=== PATIENT | female | born 1965 | race Caucasian/White ===

== ENCOUNTER 2021-05-20 17:14 | Observation (INO) ==
[2021-05-20] MEDS ORDERED: SODIUM CHLORIDE 0.9% 1000ML 1,000 ML IV STA (17:36)
[2021-05-20] MEDS ORDERED: ONDANSETRON INJ 2 MG/ML 2 ML VIAL IV STA ×2 (17:36→21:57)
[2021-05-20] MEDS ORDERED: GI COCKTAIL ED USE PO ONE (17:36)
[2021-05-20] MEDS ORDERED: FAMOTIDINE 20MG IV PUSH 20 MG/5 ML SYR IV STA (17:36)
--- NOTE | 2021-05-20 17:44 | Emergency Department Note ---
History of Present Illness General Chief complaint: Kidney Stone Stated complaint: KIDNEY STONE, NAUSEA, Time Seen by Provider: 05/20/21 17:19 History of Present Illness Maximum Pain Intensity: 9 55-year-old female who presents to emergency department for family with complaint of epigastric pain radiating into the back patient also has had nausea without vomiting. The patient reports that her pain feels similar to a kidney stone that she has had in the past. She last had extracorporeal shockwave lithotripsy performed and December for 2 left-sided kidney stones. This was performed by Dr. Bergeron in [place] where she is from. The patient did not have any discomfort after having her procedure. On further questioning, the patient has had minimal reflux in the past. She does admit to drinking 5 rum and Cokes last evening. She denies any significant caffeine or NSAID use. She denies any shortness of breath or nata chest pain, pressure, diaphoresis, dizziness or near syncope. Patient reports that her father had a myocardial infarction in his 50s. Her paternal grandmother also had a myocardial infarction at an older age. The patient reports borderline hyperlipidemia, otherwise denies any other significant medical history or medication use. The patient currently rates her discomfort a 9 out of 10. Home Medications Medication Instructions Recorded Confirmed Type alprazolam 0.25 mg tablet (Xanax) 0.125 - 0.25 mg PO DIRECTED PRN 05/20/21 05/20/21 History cholecalciferol (vitamin D3) 25 0 mcg PO WK 05/20/21 05/20/21 History mcg (1,000 unit) capsule (Vitamin D3) Allergies Allergy/AdvReac Type Severity Reaction Status Date / Time No Known Allergies Allergy Verified 05/20/21 17:47 Past Med/Surg History Medical History Borderline hyperlipidemia Kidney stones Surgical History History of lithotripsy Social History Smoking Status: Never smoker Preferred Language: Cymro marital status: Current Living Situation: Spouse and Family current occupational status: employed Feels Safe at Home: Yes Review of Systems 10 system review was performed and was negative except for pertinent positives and negatives as indicated in history of present illness Physical Exam Vital Signs Vital Signs - 24 hr 05/20/21 17:14 05/20/21 17:53 05/20/21 18:00 Temperature 36.0 C L Temperature Source Temporal Artery Scan Pulse Rate 60 55 L 56 L Pulse Rate [Bilateral Apical] Pulse Rate from SpO2 Sensor 54 L 56 L Pulse Rhythm Regular Pulse Strength Normal Respiratory Rate 16 17 17 Respiratory Effort / Characteristics Non-Labored Respiratory Depth Normal Blood Pressure 145/75 H 154/66 H Blood Pressure [Left Arm] Blood Pressure Mean 98 95 Blood Pressure Mean [Left Arm] Pulse Oximetry 99 97 98 Oxygen Delivery Method Room Air Sepsis Recent Fever Within 48 Hours No Sepsis New/Unexplained Change in Mental Status N/A Sepsis Action Taken by Nursing No Action Required 05/20/21 19:20 05/20/21 19:23 05/20/21 19:52 Temperature Temperature Source Pulse Rate Pulse Rate [Bilateral Apical] 63 76 Pulse Rate from SpO2 Sensor Pulse Rhythm Pulse Strength Respiratory Rate 20 20 Respiratory Effort / Characteristics Respiratory Depth Blood Pressure Blood Pressure [Left Arm] 151/82 H 128/73 Blood Pressure Mean Blood Pressure Mean [Left Arm] 105 91 Pulse Oximetry 98 98 98 Oxygen Delivery Method Room Air Room Air Sepsis Recent Fever Within 48 Hours Sepsis New/Unexplained Change in Mental Status Sepsis Action Taken by Nursing 05/20/21 20:32 05/20/21 21:11 05/20/21 21:59 Temperature Temperature Source Pulse Rate Pulse Rate [Bilateral Apical] 59 L 48 L 59 L Pulse Rate from SpO2 Sensor Pulse Rhythm Pulse Strength Respiratory Rate 20 20 20 Respiratory Effort / Characteristics Respiratory Depth Blood Pressure Blood Pressure [Left Arm] 114/74 122/67 114/67 Blood Pressure Mean Blood Pressure Mean [Left Arm] 87 85 82 Pulse Oximetry 96 98 96 Oxygen Delivery Method Room Air Room Air Room Air Sepsis Recent Fever Within 48 Hours Sepsis New/Unexplained Change in Mental Status Sepsis Action Taken by Nursing 05/20/21 22:32 Temperature Temperature Source Pulse Rate Pulse Rate [Bilateral Apical] 57 L Pulse Rate from SpO2 Sensor Pulse Rhythm Pulse Strength Respiratory Rate 20 Respiratory Effort / Characteristics Respiratory Depth Blood Pressure Blood Pressure [Left Arm] 127/64 Blood Pressure Mean Blood Pressure Mean [Left Arm] 85 Pulse Oximetry 98 Oxygen Delivery Method Room Air Sepsis Recent Fever Within 48 Hours Sepsis New/Unexplained Change in Mental Status Sepsis Action Taken by Nursing CONSTITUTIONAL: Healthy and well nourished. Alert and oriented X 3. Patient is initially standing at bedside, and appears in moderate discomfort with an emesis bag. HEENT: No scleral icterus or conjunctival injection/pallor. NECK: Full active range of motion without discomfort. No JVD or carotid bruits. RESPIRATORY: Clear to auscultation bilaterally with no wheezing, crackles, rhonchi or stridor. The breathing does not cause any discomfort. CARDIOVASCULAR: Regular rate and rhythm with no murmurs, rubs or gallops. GASTROINTESTINAL: Bowel sounds present in all quadrants. Patient has mild epigastric tenderness to palpation. Negative McBurney's point tenderness. Negative Lott sign. Negative CVA tenderness. No focal left lower quadrant tenderness to palpation. No rigidity, guarding or rebound. MUSCULOSKELETAL: Full range of motion of all joints without discomfort. INTEGUMENTARY: No rash or other significant dermatologic conditions noted. HEMATOLOGIC: No ecchymosis or petechiae. PSYCHIATRIC: Positive affect. NEUROLOGIC: No focal neurologic deficits noted. Course Course Patient history and physical exam were performed. Nurses notes were reviewed. Vital signs were reviewed, showing a mildly elevated blood pressure 145/75. The patient is not tachypneic, tachycardic sick. The patient does appear in moderate discomfort with nausea. IV access was established, and labs were drawn. The patient was hydrated with a liter normal saline, and administered IV Pepcid and Zofran. The patient refused any analgesics. An order was also plac ed for a GI cocktail, but the patient was encouraged to wait until her nausea subsides before drinking it. ECG was performed, showing a sinus bradycardia without any other conduction abnormalities, ischemia or infarct. The patient was placed on last picker while in the emergency department. Review of labs shows a normal CBC, coag studies, CMP and lipase. Patient does have trace hematuria that the patient reports is chronic. She otherwise does not appear to have UTI. COVID-[address] angio of the chest, as well as CT with IV contrast of the abdomen and pelvis was suggestive of acute cholecystitis. After the patient returned from CT, she was complaining of notable pain, and was administered IV morphine with excellent pain control. Findings were discussed with the patient. I did recommend surgical intervention. Upon further discussions with the patient, she initially wanted to drive back home to [place] for further surgical management. I did recommend having our surgical team evaluate the patient and provide further guidance. I also recommended performing an ultrasound to look a little bit closer at the gallbladder, and the patient was in agreement. To placing the order for the gallbladder, I discussed the case further with Davian Downey PA-C, working with Dr. Amaro, general surgeon. The initial plan was to admit the patient for laparoscopic cholecystectomy procedure. It was recommended that the ultrasound not to be performed. Given her normal lab work, Dr. Amaro recommended performing a gallbladder ultrasound for further characterization. Ultrasound showed cholelithiasis without any convincing cholecystitis or, bile duct dil atation. The patient did eventually agreed to admission and surgical intervention. Please see general surgery's dictations for further surgical treatment and final disposition. The patient felt comfortable at the time of my transfer of care to the surgical service. Administered Medications Lactated Ringer's (Lr) 1,000 mls @ 100 mls/hr IV .Q10H MARY Stop: 06/19/21 22:14 Last Admin: 05/20/21 22:31 Dose: 100 mls/hr Documented by: [id number] Discontinued Medications Al Hydrox/Mg Hydrox/Simethicone (Gi Cocktail Ed Use) 1 dose PO ONE ONE Stop: 05/20/21 17:37 Last Admin: 05/20/21 17:48 Dose: 1 dose Documented by: [id number] Sodium Chloride (Nss 1000ml) 1,000 mls @ 999 mls/hr IV .Q1H1M STA Stop: 05/20/21 18:36 Last Infusion: 05/20/21 19:00 Dose: 0 mls/hr Documented by: [id number] Admin: 05/20/21 17:48 Dose: 999 mls/hr Documented by: [id number] Famotidine (Pepcid 20mg Iv Push) 20 mg in 5 mls @ 2.5 mls/min IV NOW STA Stop: 05/20/21 17:37 Last Admin: 05/20/21 17:49 Dose: 2.5 mls/min Documented by: [id number] Piperacillin Sod/Tazobactam (Sod 3.375 gm/ Dextrose) 100 ml in 115 mls @ 230 mls/hr IV NOW STA Stop: 05/20/21 22:39 Last Infusion: 05/20/21 22:57 Dose: 0 mls/hr Documented by: [id number] Admin: 05/20/21 22:37 Dose: 230 mls/hr Documented by: [id number] Ioversol (Optiray 320 125ml) 120 ml IV ONCE ONE Stop: 05/20/21 19:17 Last Admin: 05/20/21 19:17 Dose: 120 ml Documented by: [id number] Morphine Sulfate (Morphine Sulfate 10 Mg/Ml Carp/Vial) 6 mg IV NOW STA Stop: 05/20/21 19:25 Last Admin: 05/20/21 19:52 Dose: Not Given Documented by: [id number] Morphine Sulfate (Morphine Sulfate 2 Mg/Ml Carp) Confirm Administered Dose 2 mg .ROUTE .STK-MED ONE Stop: 05/20/21 19:47 Last Admin: 05/20/21 19:50 Dose: 2 mg Documented by: [id number] Morphine Sulfate (Morphine Sulfate 4 Mg/Ml 1 Ml Carp\Vial) Confirm Administered Dose 4 mg .ROUTE .STK-MED ONE Stop: 05/20/21 19:48 Last Admin: 05/20/21 19:49 Dose: 4 mg Documented by: [id number] Ondansetron HCl (Ondansetron Inj 2 Mg/Ml 2 Ml Vial) 4 mg IV NOW STA Stop: 05/20/21 17:37 Last Admin: 05/20/21 17:49 Dose: 4 mg Documented by: [id number] Ondansetron HCl (Ondansetron Inj 2 Mg/Ml 2 Ml Vial) 4 mg IV NOW STA Stop: 05/20/21 21:58 Last Admin: 05/20/21 22:12 Dose: 4 mg Documented by: [id number] Medical Decision Making Medical Records Attestation: I reviewed the patient's medical records. Home Medications Current Medication List: was personally reviewed by me Laboratory Data Attestation: I reviewed the patient's lab results. Result diagrams: 05/20/21 17:40 05/20/21 17:40 Lab Results 05/20/21 05/20/21 05/20/21 Range/Units 17:40 17:40 17:40 WBC 7.82 (4.8-10.8) K/uL RBC 4.36 (4.2-5.4) M/uL Hgb 13.7 (12.0-16.0) g/dL Hct 39.4 (37-47) % MCV 90.4 (80-100) fL MCH 31.4 (25-34) pg MCHC 34.8 (32-36) g/dL RDW Std Deviation 46.8 H (36.4-46.3) fL RDW Coeff of Rain 14.1 (11.5-14.5) % Plt Count 332 (130-400) K/uL MPV 9.3 (7.4-10.4) fL Immature Gran % (Auto) 0.3 % Neut % (Auto) 49.1 % Lymph % (Auto) 33.8 % Millard % (Auto) 11.4 % Eos % (Auto) 5.0 % Baso % (Auto) 0.4 % Neut # (Auto) 3.85 (1.4-6.5) K/uL Lymph # (Auto) 2.64 (1.2-3.4) K/uL Millard # (Auto) 0.89 H (0.11-0.59) K/uL Eos # (Auto) 0.39 (0-0.5) K/uL Baso # (Auto) 0.03 (0-0.2) K/uL Immature Gran # (Auto) 0.02 (0.00-0.02) K/uL PT 10.4 (9.0-12.0) Seconds INR 1.0 (0.9-1.1) APTT 27.0 (21.0-31.0) Seconds PTT Ratio 1.0 Sodium 140 (136-145) mmol/L Potassium 3.6 (3.5-5.1) mmol/L Chloride 107 (98-107) mmol/L Carbon Dioxide 25 (21-32) mmol/L Anion Gap 8 (3-11) BUN 19 (6-23) mg/dl Creatinine 0.71 (0.6-1.2) mg/dl Est Cr Clr Drug Dosing 95.7 ml/min Est GFR ( Amer) 112.7 ml/min Est GFR (Non-Af Amer) 97.2 ml/min BUN/Creatinine Ratio 26.8 H (10-20) Glucose 118 H (70-99(Fasting)) mg/dl Calcium 9.0 (8.5-10.1) mg/dl Total Bilirubin 0.2 (0.2-1.0) mg/dl AST 17 (13-39) U/L ALT 19 (7-52) U/L Alkaline Phosphatase 95 (34-104) U/L Troponin I < 0.03 (0-0.04) ng/ml Total Protein 6.5 (6.0-8.3) gm/dl Albumin 4.1 (3.4-5.0) gm/dl Globulin 2.4 L (2.5-4.0) gm/dl Albumin/Globulin Ratio 1.7 (0.9-2) Lipase 41 (11-82) U/L HCG, Qual (Negative) Urine Color Urine Appearance (Clear) Urine pH (4.5-7.5) Ur Specific [place] (1.000-1.030) Urine Protein (Negative) Urine Glucose (UA) (Negative) Urine Ketones (Negative) Urine Blood (Negative) Urine Nitrite (Negative) Urine Bilirubin (Negative) Urine Urobilinogen (Negative) Ur Leukocyte Esterase (Negative) Urine WBC (Auto) (0-5) /hpf Urine RBC (Auto) (0-4) /hpf U Hyaline Cast (Auto) (0-5) /lpf U Epithel Cells (Auto) (0-5) /lpf Urine Bacteria (Auto) (Negative) SARS-CoV-2, RNA, NAAT (NEGATIVE) 05/20/21 05/20/21 05/20/21 Range/Units 17:40 18:06 20:30 WBC (4.8-10.8) K/uL RBC (4.2-5.4) M/uL Hgb (12.0-16.0) g/dL Hct (37-47) % MCV (80-100) fL MCH (25-34) pg MCHC (32-36) g/dL RDW Std Deviation (36.4-46.3) fL RDW Coeff of Rain (11.5-14.5) % Plt Count (130-400) K/uL MPV (7.4-10.4) fL Immature Gran % (Auto) % Neut % (Auto) % Lymph % (Auto) % Millard % (Auto) % Eos % (Auto) % Baso % (Auto) % Neut # (Auto) (1.4-6.5) K/uL Lymph # (Auto) (1.2-3.4) K/uL Millard # (Auto) (0.11-0.59) K/uL Eos # (Auto) (0-0.5) K/uL Baso # (Auto) (0-0.2) K/uL Immature Gran # (Auto) (0.00-0.02) K/uL PT (9.0-12.0) Seconds INR (0.9-1.1) APTT (21.0-31.0) Seconds PTT Ratio Sodium (136-145) mmol/L Potassium (3.5-5.1) mmol/L Chloride (98-107) mmol/L Carbon Dioxide (21-32) mmol/L Anion Gap (3-11) BUN (6-23) mg/dl Creatinine (0.6-1.2) mg/dl Est Cr Clr Drug Dosing ml/min Est GFR ( Amer) ml/min Est GFR (Non-Af Amer) ml/min BUN/Creatinine Ratio (10-20) Glucose (70-99(Fasting)) mg/dl Calcium (8.5-10.1) mg/dl Total Bilirubin (0.2-1.0) mg/dl AST (13-39) U/L ALT (7-52) U/L Alkaline Phosphatase (34-104) U/L Troponin I (0-0.04) ng/ml Total Protein (6.0-8.3) gm/dl Albumin (3.4-5.0) gm/dl Globulin (2.5-4.0) gm/dl Albumin/Globulin Ratio (0.9-2) Lipase (11-82) U/L HCG, Qual Negative (Negative) Urine Color Yellow Urine Appearance Cloudy A (Clear) Urine pH 5.0 (4.5-7.5) Ur Specific [place] 1.017 (1.000-1.030) Urine Protein Negative (Negative) Urine Glucose (UA) Negative (Negative) Urine Ketones Negative (Negative) Urine Blood 1+ H (Negative) Urine Nitrite Negative (Negative) Urine Bilirubin Negative (Negative) Urine Urobilinogen Negative (Negative) Ur Leukocyte Esterase Negative (Negative) Urine WBC (Auto) 1-5 (0-5) /hpf Urine RBC (Auto) 0-4 (0-4) /hpf U Hyaline Cast (Auto) 0 (0-5) /lpf U Epithel Cells (Auto) >30 H (0-5) /lpf Urine Bacteria (Auto) 1+ H (Negative) SARS-CoV-2, RNA, NAAT NEGATIVE (NEGATIVE) Imaging Data Attestation: I personally reviewed and interpreted this imaging study as follows: My Impression: My interpretation of a CT with IV contrast of the abdomen and pelvis is con cerning for possible cholecystitis. No evidence for bowel perforation, appendicitis, diverticulitis or obstruction is noted. Gallbladder ultrasound shows cholelithiasis without any pericholecystic fluid or significant common bile duct dilatation. Mild gallbladder wall thickening is noted. Radiologist reports were also reviewed, including [facility] reports for the gallbladder ultrasound. Local radiologist report for the gallbladder ultrasound is pending. [facility] report: US GALLBLADDER: Multiple small gallstones. Gallbladder wall 3 mm. No pericholecystic fluid. No sonographic Lott sign. The common bile duct is 5 mm. Liver unremarkable. Right kidney unremarkable. Impression: Cholelithiasis. Radiologist: Marco Antonio Juárez M.D. Study ready at 21:04 and initial results transmitted at 21:34 Radiologist's Impression: Abdomen/Pelvis CT 05/20/21 17:36 CT angio chest w con, CT abd pelvis IV con only HISTORY: 55 years-old Female Epigastric pain radiating into back acute chest and abdominal pain COMPARISON: None TECHNIQUE: Multiple axial CT images of the chest were obtained following the intravenous administration of 120 mL Optiray 320. 3-D coronal and sagittal MIPS were obtained from the axial data set and were submitted for review. All me asurements were obtained according to NASCET criteria. CT abdomen and pelvis with IV contrast only was also obtained. A dose lowering technique was used consistent with the principals of GISSELLE. FINDINGS: CTA OF THE CHEST: The heart is normal in size without pericardial effusion. No thoracic aortic aneurysm or dissection. Patency of the imaged great vessels. Unremarkable pulmonary artery. No pulmonary emboli identified. Normal thyroid. No adenopathy. Trace left pleural effusion. No pneumothorax, overt pulmonary edema or airspace consolidation typical for pneumonia. Minimal dependent bibasilar atelectasis. No suspicious pulmonary nodules or masses. Central airways are patent. Unremarkable soft tissues. No acute fracture. CT ABDOMEN/PELVIS: No pneumatosis or pneumoperitoneum. The spleen, pancreas and adrenal glands are unremarkable. Mild gallbladder wall thickening with trace pericholecystic fluid. No biliary ductal dilation. Unremarkable liver. Patency of the hepatic and portal veins.. 5 mm nonobstructing calculus of the superior pole left kidney. 3 mm nonobstructing calculus of the inferior pole left kidney. Symmetric enhancement of the kidneys. No hydronephrosis. Partial distention of the urinary bladder with mild wall thickening. Retroflexed uterus. Fluid is noted within a suggested scar. Trace fluid within the endocervical canal. Follicular changes of the ovaries suggested. Aorta and IVC are unremarkable. No adenopathy. No bowel obstruction or bowel wall thickening. Mild colonic diverticulosis. Normal appendix. Small fat filled periumbilical hernia. No acute fracture. IMPRESSION: 1. Unremarkable CTA of the chest. 2. Distended gallbladder with mild wall thickening and trace pericholecystic fluid. Correlate clinically to exclude acute cholecystitis. 3. No bowel obstruction or bowel wall thickening. Normal appendix. 4. Nonobstructing left renal calculi. ACT 112: Negative or not required by law. The above report was generated using voice recognition software. It may contain grammatical, syntax or spelling errors. Electronically signed by: Natalio Diggs M.D. 05/20/2021 7:32 PM Chest CTA 05/20/21 17:36 CT angio chest w con, CT abd pelvis IV con only HISTORY: 55 years-old Female Epigastric pain radiating into back acute chest and abdominal pain COMPARISON: None TECHNIQUE: Multiple axial CT images of the chest were obtained following the intravenous administration of 120 mL Optiray 320. 3-D coronal and sagittal MIPS were obtained from the axial data set and were submitted for review. All mariana surements were obtained according to NASCET criteria. CT abdomen and pelvis with IV contrast only was also obtained. A dose lowering technique was used consistent with the principals of GISSELLE. FINDINGS: CTA OF THE CHEST: The heart is normal in size without pericardial effusion. No thoracic aortic aneurysm or dissection. Patency of the imaged great vessels. Unremarkable pulmonary artery. No pulmonary emboli identified. Normal thyroid. No adenopathy. Trace left pleural effusion. No pneumothorax, overt pulmonary edema or airspace consolidation typical for pneumonia. Minimal dependent bibasilar atelectasis. No suspicious pulmonary nodules or masses. Central airways are patent. Unremarkable soft tissues. No acute fracture. CT ABDOMEN/PELVIS: No pneumatosis or pneumoperitoneum. The spleen, pancreas and adrenal glands are unremarkable. Mild gallbladder wall thickening with trace pericholecystic fluid. No biliary ductal dilation. Unremarkable liver. Patency of the hepatic and portal veins.. 5 mm nonobstructing calculus of the superior pole left kidney. 3 mm nonobstructing calculus of the inferior pole left kidney. Symmetric enhancement of the kidneys. No hydronephrosis. Partial distention of the urinary bladder with mild wall thickening. Retroflexed uterus. Fluid is noted within a suggested scar. Trace fluid within the endocervical canal. Follicular changes of the ovaries suggested. Aorta and IVC are unremarkable. No adenopathy. No bowel obstruction or bowel wall thickening. Mild colonic diverticulosis. Normal appendix. Small fat filled periumbilical hernia. No acute fracture. IMPRESSION: 1. Unremarkable CTA of the chest. 2. Distended gallbladder with mild wall thickening and trace pericholecystic fluid. Correlate clinically to exclude acute cholecystitis. 3. No bowel obstruction or bowel wall thickening. Normal appendix. 4. Nonobstructing left renal calculi. ACT 112: Negative or not required by law. The above report was generated using voice recognition software. It may contain grammatical, syntax or spelling errors. Electronically signed by: Natalio Diggs M.D. 05/20/2021 7:32 PM ECG Data Attestation: I personally reviewed and interpreted this ECG as follows: Indication: + abdominal pain and + back/shoulder pain Rate (beats per minute): 54 Rhythm: + sinus bradycardia ECG Intervals/blocks: + Normal QRS, + Normal QT and + Normal [place] ECG [place]: + Normal ECG ST segments: + Normal ST segments Comparison ECG Date: no prior available Blood Pressure Blood Pressure Findings: Normal blood pressure MDM Narrative Cardiac monitoring: An order was placed for continuous cardiac monitoring. The monitor shows a rate of 54 bpm with a normal sinus rhythm. 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 Patient presents to the emergency department with complaint of epigastric pain radiating into the back. The patient did not have any additional Lott sign to suggest acute cholecystitis. Was initially treated with IV Pepcid and GI lori ktail for possible alcoholic gastritis after drinking several drinks last evening. This did not provide any significant relief for the patient. CT imaging then suggested that the patient had a possible acute cholecystitis. It is noted that her labs, including CBC and CMP were completely normal. Consultation was placed with general surgery who initially plan to take the patient to the OR for laparoscopic cholecystectomy, however the patient was considering driving home for further surgical management. An ultrasound was performed, showing evidence for acute cholelithiasis. With shared medical decision making, the patient and general surgery elected to proceed with laparoscopic cholecystectomy. It is still possible that the patient may also be experiencing alcoholic gastritis. Laboratory studies are not suggestive of pancreatitis, hepatitis or UTI. CT imaging also does not show evidence for diverticulitis, bowel obstruction, appendicitis or other acute intra-abdominal findings. Impression & Plan Cholelithiasis, Acute epigastric pain Discharge Plan Visit Data Chief Complaint: Kidney Stone Stated Complaint: KIDNEY STONE, NAUSEA, ED Provider: William Hair ED Midlevel Provider: Bridger Bullard Discharge Problem: Cholelithiasis, Acute epigastric pain Discharge Instructions Interventions: ED Discharge Assessment Last Done: 05/20/21 23:12 Forms Stand Alone Forms: [email or web address] Prescriptions Prescriptions: No Action alprazolam [Xanax] 0.25 mg Tablet 0.125 - 0.25 mg PO DIRECTED PRN (Reason: Anxiety) RF: 0 cholecalciferol (vitamin D3) [Vitamin D3] 25 mcg (1,000 unit) Capsule 0 mcg PO WK RF: 0 Referrals Referrals: PCP,NO [Primary Care Provider] -
[2021-05-20 17:50] LABS: Basophils # (auto) 0.03 K/uL (0-0.2); Basophils % (auto) 0.4 %; Eosinophils # (auto) 0.39 K/uL (0-0.5); Hematocrit (blood only) 39.4 % (37-47); Hemoglobin 13.7 g/dL (12.0-16.0); Immature Granulocytes # (auto) 0.02 K/uL (0.00-0.02); Immature Granulocytes % (auto) 0.3 %; Lymphocytes # (auto) 2.64 K/uL (1.2-3.4); Lymphocytes % (auto) 33.8 %; Mean Corpuscular Hemoglobin 31.4 pg (25-34); Mean Corpuscular Hgb Conc 34.8 g/dL (32-36); Mean Corpuscular Volume 90.4 fL (80-100); Mean Platelet Volume 9.3 fL (7.4-10.4); Monocytes # (auto) 0.89 K/uL (0.11-0.59); Monocytes % (auto) 11.4 %; Neutrophils # (auto) 3.85 K/uL (1.4-6.5); Neutrophils % (auto) 49.1 %; Platelet Count 332 K/uL (130-400); RDW Coefficient of Variation 14.1 % (11.5-14.5); RDW Standard Deviation 46.8 fL (36.4-46.3); Red Blood Count 4.36 M/uL (4.2-5.4); White Blood Count 7.82 K/uL (4.8-10.8)
[2021-05-20 18:03] LABS: Prothrombin Time 10.4 Seconds (9.0-12.0)
[2021-05-20 18:11] LABS: Troponin I < 0.03 ng/ml (0-0.04)
[2021-05-20 18:20] LABS: Appearance Urine Cloudy (Clear); Bacteria Urine Automated 1+ (Negative); Bilirubin Urine Negative (Negative); Blood Urine 1+ (Negative); Cast Urine Automated 0 /lpf (0-5); Color Urine Yellow; Epithelial Cell Urine Auto >30 /lpf (0-5); Glucose Urine UA Negative (Negative); Ketones Urine Negative (Negative); Leukocyte Esterase Urine Negative (Negative); Nitrite Urine Negative (Negative); Protein Urine Negative (Negative); RBC Urine Automated 0-4 /hpf (0-4); Specific Gravity Urine 1.017 (1.000-1.030); Urobilinogen Urine Negative (Negative)
[2021-05-20 18:24] LABS: Alanine Aminotransferase 19 U/L (7-52); Albumin Globulin Ratio 1.7 (0.9-2); Albumin Level 4.1 gm/dl (3.4-5.0); Alkaline Phosphatase 95 U/L (34-104); Anion Gap 8 (3-11); Aspartate Aminotransferase 17 U/L (13-39); BUN Creatinine Ratio 26.8 (10-20); Bilirubin,Total 0.2 mg/dl (0.2-1.0); Blood Urea Nitrogen 19 mg/dl (6-23); Carbon Dioxide 25 mmol/L (21-32); Chloride 107 mmol/L (98-107); Creatinine Clr Calc Pharmacy 95.7 ml/min; Est GFR (African American) 112.7 ml/min; Est GFR (Non-African American) 97.2 ml/min; Globulin 2.4 gm/dl (2.5-4.0); Glucose 118 mg/dl (70-99(Fasting)); Lipase 41 U/L (11-82); Potassium 3.6 mmol/L (3.5-5.1); Sodium 140 mmol/L (136-145); Total Protein 6.5 gm/dl (6.0-8.3)
[2021-05-20 18:35] LABS: Pregnancy Test, Serum Negative (Negative)
[2021-05-20] MEDS ORDERED: OPTIRAY 320 125ml IV ONE (19:16)
[2021-05-20] MEDS ORDERED: MoRPHine SULFATE 10 MG/ML CARP/VIAL IV STA (19:24)
--- NOTE | 2021-05-20 19:34 | CT Scan Report ---
CT angio chest w con, CT abd pelvis IV con only HISTORY: 55 years-old Female Epigastric pain radiating into back acute chest and abdominal pain COMPARISON: None TECHNIQUE: Multiple axial CT images of the chest were obtained following the intravenous administrati on of 120 mL Optiray 320. 3-D coronal and sagittal MIPS were obtained from the axial data set and wer e submitted for review. All measurements were obtained according to NASCET criteria. CT abdomen and p bryan with IV contrast only was also obtained. A dose lowering technique was used consistent with the principals of GISSELLE. FINDINGS: CTA OF THE CHEST: The heart is normal in size without pericardial effusion. No thoracic aortic aneurysm or dissection. Patency of the imaged great vessels. Unremarkable pulmonary artery. No pulmonary emboli identified. N ormal thyroid. No adenopathy. Trace left pleural effusion. No pneumothorax, overt pulmonary edema or airspace consolidation typical for pneumonia. Minimal dependent bibasilar atelectasis. No suspicious pulmonary nodules or masses. Central airways are patent. Unremarkable soft tissues. No acute fracture . CT ABDOMEN/PELVIS: No pneumatosis or pneumoperitoneum. The spleen, pancreas and adrenal glands are unremarkable. Mild ga llbladder wall thickening with trace pericholecystic fluid. No biliary ductal dilation. Unremarkable liver. Patency of the hepatic and portal veins.. 5 mm nonobstructing calculus of the superior pole le ft kidney. 3 mm nonobstructing calculus of the inferior pole left kidney. Symmetric enhancement of th e kidneys. No hydronephrosis. Partial distention of the urinary bladder with mild wall thickening. Re troflexed uterus. Fluid is noted within a suggested scar. Trace fluid within the endocervic al canal. Follicular changes of the ovaries suggested. Aorta and IVC are unremarkable. No adenopathy. No bowel obstruction or bowel wall thickening. Mild colonic diverticulosis. Normal appendix. Small fa t filled periumbilical hernia. No acute fracture. IMPRESSION: 1. Unremarkable CTA of the chest. 2. Distended gallbladder with mild wall thickening and trace pericholecystic fluid. Correlate clinica lly to exclude acute cholecystitis. 3. No bowel obstruction or bowel wall thickening. Normal appendix. 4. Nonobstructing left renal calculi. ACT 112: Negative or not required by law. The above report was generated using voice recognition software. It may contain grammatical, syntax o r spelling errors. Electronically signed by: Natalio Diggs M.D. 05/20/2021 7:32 PM
[2021-05-20] MEDS ORDERED: MoRPHine SULFATE 2 MG/ML CARP ONE (19:46)
[2021-05-20] MEDS ORDERED: MoRPHine SULFATE 4 MG/ML 1 ML CARP\\VIAL ONE (19:47)
--- NOTE | 2021-05-20 22:06 | History & Physical Report ---
Date of Service May 20, 2021 Assessment & Plan (1) Cholelithiasis: Plan: Due to the patient's clinical presentation and imaging we admit her to the hospital proceeding as follows: We will make her n.p.o. Analgesia will be provided Antiemetics will be provided We will hydrate her with IV fluids We will administer antibiotics. We will utilize Zosyn. We will repeat labs in the morning Due to the findings on imaging as well as her clinical presentation I feel the patient would benefit from a cholecystectomy. I scheduled her for a laparoscopic, possible open cholecystectomy with Dr. Amaro for tomorrow. I discussed the risks, benefits, and expected postoperative course with the patient. She wishes to proceed. We will use SCDs for DVT prevention, no chemical means due to planned surgery We will level 1 full code History of Present Illness Chief Complaint: Abdominal pain Primary Care Provider: NO PCP Is a 55-year-old female who is visiting the [place] area as she is dropping her daughter off for college. Patient says that she was in her usual state of health feeling fine when earlier today she developed some epigastric pain and to a lesser degree pain in the right upper quadrant. She said that the pain was unrelated to anything she ate. She said that she has never had such sy mptoms like this before. She said that the pain did radiate to her back. She did not identify any provocative factors. She noted that the pain was alleviated with medicine that was given to her in the emergency department. She does report that the pain radiates to her back. She has never had any prior abdominal surgeries. With her pain she did have nausea without vomiting. She denies any fevers, shakes, chills. Today in the emergency department the patient had labs and imaging which I independent reviewed. A CBC revealed white blood cell count, hemoglobin, hematocrit, and platelet count were all within normal range. Chemistry profile showed sodium, potassium, BUN, and creatinine were all within normal range. There is no elevation of her bilirubin, transaminases, alkaline phosphatase, or lipase. test was noted be negative. Urinalysis was not indicative of infection. A Covid test was noted to be negative. Patient had a CT scan of her abdomen and pelvis which showed the patient had distended gallbladder with mild gallbladder wall thickening and trace pericholecystic fluid. This was followed with a gallbladder ultrasound that showed showed patient had multiple gallstones. Her gallbladder wall was slightly thickened with 3 mm of thickness. There is no pericholecystic fluid noted. Patient also had a CT scan of her chest which showed no evidence of pneumonia, pneumothorax, or aortic dissection. There is no evidence of PE on the study. Did question patient on her activities of daily living the patient says that she lifts weights several times per week and she also uses an elliptical machine nearly every day. She says with these activities she does not get any chest pain or shortness of breath. She is a non-smoker At the time of interview she is resting comfortably bed in no distress Allergies Allergy/AdvReac Type Severity Reaction Status Date / Time No Known Allergies Allergy Verified 05/20/21 17:47 Home Medications Medication Instructions Recorded Confirmed Type alprazolam 0.25 mg tablet (Xanax) 0.125 - 0.25 mg PO DIRECTED PRN 05/20/21 05/20/21 History cholecalciferol (vitamin D3) 25 0 mcg PO WK 05/20/21 05/20/21 History mcg (1,000 unit) capsule (Vitamin D3) Past Med/Surg History Medical History Borderline hyperlipidemia Kidney stones Surgical History History of lithotripsy Social History Smoking Status: Never smoker Second Hand Exposure: No; Hx Alcohol Use: Yes Hx Substance Use: No Preferred Language: Azeri Communication Ability: Effective Boiler Repairman Required: No Beliefs That Will Affect Care: None marital status: Current Living Situation: Spouse current occupational status: employed Other Information That Helps Us Care for You: No Feels Safe at Home: Yes Safety Concerns: Feels Safe At This Time Assistive Devices: Glasses Review of Systems Constitutional: no fever and no chills Eyes: no diplopia Ear, Nose, Mouth, Throat: no ear pain Respiratory: no cough and no dyspnea Cardiovascular: no chest pain Gastrointestinal: + abdominal pain and + nausea; no vomiting Genitourinary: no dysuria Musculoskeletal: + back pain (Radiating from abdomen) Integumentary: no rash Neurologic: no localized weakness Physical Exam Constitutional: well developed and well nourished; no acute distress Eyes: no conjunctival abnormality ENMT: Ears: no hearing impairment and no external ear abnormality Neck: trachea midline Respiratory: normal respiratory effort; no respiratory distress and no labored breathing Cardiovascular: Rate/Rhythm: regular rate and regular rhythm Gastrointestinal (Abdomen): Abdomen is soft and nondistended. There is no rebound tenderness or guarding. Patient did have slight pain in the epigastric area and right upper quadrant palpation (she had just received 6 mg of intra venous morphine prior to my exam) Musculoskeletal: No calf tenderness Skin: no rashes Neurologic: moves all extremities Psychiatric: A+Ox3, euthymic affect Results & Data Results & Data ([facility]) Vital Signs (Past 12 Hours) Vital Signs Temp Pulse Pulse Resp BP BP Pulse Ox 05/20/21 21:11 48 L 20 122/67 98 05/20/21 20:32 59 L 20 114/74 96 05/20/21 19:52 76 20 128/73 98 05/20/21 19:23 63 20 151/82 H 98 05/20/21 19:20 98 05/20/21 18:00 56 L 17 154/66 H 98 05/20/21 17:53 55 L 17 97 05/20/21 17:14 36.0 C L 60 16 145/75 H 99 Supervising Physician Co-Signing Physician Notes As per Davian Downey physician fitness assistant This morning the patient is resting comfortable does not want to have the pain she had yesterday the first time she is ever had this The abdomen is soft minimal right upper quadrant guarding We will proceed with laparoscopic cholecystectomy intraoperative cholangiogram she is on the add-on schedule today do not know the time we will have her sign her permit in the preop area PG Care Time/CCT Total # of Minutes Spent Total Time Spent with Patient: Total time spent is greater than 50% in coordination of care (as documented) at patient's floor/unit and/or counseling patient: Coding Level of Care Code INT OBSERVATION CARE 70M LVL 3 Diagnoses Cholelithiasis K80.20
[2021-05-20] MEDS ORDERED: PIPERACILLIN/TAZOBACTAM 3.375 GM in DEXTROSE 5% 100 ML/100 ML BAG IV STA (22:10)
[2021-05-20] MEDS ORDERED: MoRPHine SULFATE 4 MG/ML 1 ML CARP\\VIAL IV PRN (22:10)
[2021-05-20] MEDS ORDERED: ACETAMINOPHEN 1,000 MG/100 ML VIAL IV PRN (22:11)
[2021-05-20] MEDS: LACTATED RINGER'S 1,000 ML IV SCH (22:31)
[2021-05-20] MEDS ORDERED: PIPERACILL/TAZOBAC CONSULT ACTIVE PRN ×2 (23:34)
[2021-05-21] MEDS: PIPERACILLIN/TAZOBACTAM 3.375 GM in DEXTROSE 5% 100 ML IV SCH ×3 (03:54→20:36)
[2021-05-21] MEDS: ONDANSETRON INJ 2 MG/ML 2 ML VIAL IV PRN ×3 (04:36→21:12)
--- NOTE | 2021-05-21 06:46 | Electrocardiogram Report ---
Test Reason : Blood Pressure : / mmHG Vent. Rate : 054 BPM Atrial Rate : 054 BPM P-R Int : 174 ms QRS Dur : 084 ms QT Int : 442 ms P-R-T Axes : 046 009 049 degrees QTc Int : 419 ms Sinus bradycardia Otherwise normal ECG No previous ECGs available Confirmed by Spencer Ferro ([id number]) on 05/21/2021 6:46:21 AM Referred By: REFERRED SELF Confirmed By:Spencer Ferro
[2021-05-21 06:47] LABS: Basophils # (auto) 0.04 K/uL (0-0.2); Basophils % (auto) 0.4 %; Eosinophils # (auto) 0.25 K/uL (0-0.5); Eosinophils % (auto) 2.7 %; Hematocrit (blood only) 37.2 % (37-47); Hemoglobin 12.3 g/dL (12.0-16.0); Immature Granulocytes # (auto) 0.04 K/uL (0.00-0.02); Immature Granulocytes % (auto) 0.4 %; Lymphocytes # (auto) 2.36 K/uL (1.2-3.4); Lymphocytes % (auto) 25.8 %; Mean Corpuscular Hemoglobin 30.4 pg (25-34); Mean Corpuscular Hgb Conc 33.1 g/dL (32-36); Mean Corpuscular Volume 91.9 fL (80-100); Mean Platelet Volume 9.4 fL (7.4-10.4); Monocytes # (auto) 0.98 K/uL (0.11-0.59); Monocytes % (auto) 10.7 %; Neutrophils # (auto) 5.48 K/uL (1.4-6.5); Platelet Count 287 K/uL (130-400); RDW Coefficient of Variation 14.4 % (11.5-14.5); Red Blood Count 4.05 M/uL (4.2-5.4); White Blood Count 9.15 K/uL (4.8-10.8)
[2021-05-21 07:18] LABS: Albumin Globulin Ratio 1.7 (0.9-2); Albumin Level 3.3 gm/dl (3.4-5.0); BUN Creatinine Ratio 19.4 (10-20); Bilirubin,Total 0.4 mg/dl (0.2-1.0); Calcium 8.5 mg/dl (8.5-10.1); Creatinine Clr Calc Pharmacy 112.3 ml/min; Est GFR (African American) 119.3 ml/min; Est GFR (Non-African American) 102.9 ml/min; Globulin 1.9 gm/dl (2.5-4.0); Potassium 3.8 mmol/L (3.5-5.1); Total Protein 5.2 gm/dl (6.0-8.3)
[2021-05-21] MEDS: LACTATED RINGER'S 1,000 ML IV SCH ×2 (07:56→17:00)
--- NOTE | 2021-05-21 08:17 | Ultrasound Report ---
US gallbladder CLINICAL HISTORY: Abdominal pain. Evaluate for acute cholecystitis. COMPARISON STUDY: CT of the abdomen and pelvis May 20, 2021. FINDINGS: Liver is sonographically normal. There is no biliary ductal dilatation. Common bile duct me asures 5 mm in caliber. There are multiple gallstones within the gallbladder. Gallbladder is distende d. Mild gallbladder wall thickening is noted. There is no pericholecystic fluid. No sonographic Kate y sign was elicited. Pancreas body is normal. Head and tail are partially obscured. IMPRESSION: Cholelithiasis and mild gallbladder distention. No sonographic Lott sign. If clinical suspicion for acute cholecystitis, a nuclear medicine hepatobiliary scan is recommended. ACT 112: Negative or not required by law. Electronically signed by: Nic Palmer M.D. 05/21/2021 8:16 AM
--- NOTE | 2021-05-21 10:22 | Anesthesiology Consultation ---
Date of Service May 21, 2021 Assessment & Plan (1) Encounter for pre-operative examination: Chart Review Chart Review: Acceptable Risk for Surgery and Patient NOT seen in Pre Admission Testing Consults Requested none History Surgery Operation Date: 05/21/21 08:20 Proposed Procedures p Laparoscopic Cholecystectomy Possible Open Possible Cholangiogram - Narciso Amaro MD, FACS Height/Weight Height: 5 ft 6 in Weight: 80.6 kg Allergies Allergy/AdvReac Type Severity Reaction Status Date / Time No Known Allergies Allergy Verified 05/20/21 17:47 Medications Home Medications Medication Instructions Recorded Confirmed Last Taken alprazolam 0.25 mg tablet (Xanax) 0.125 - 0.25 mg PO DIRECTED PRN 05/20/21 05/20/21 05/20/21 cholecalciferol (vitamin D3) 25 0 mcg PO WK 05/20/21 05/20/21 Unknown mcg (1,000 unit) capsule (Vitamin D3) Active Medications Generic Name Dose Route Start Last Admin Trade Name Freq PRN Reason Stop Dose Admin Lactated Ringer's 1,000 mls @ 100 mls/hr 05/20/21 22:15 05/21/21 07:56 Lr IV 06/19/21 22:14 100 mls/hr .Q10H MARY Administration Acetaminophen 1,000 mg in 100 mls @ 400 mls/hr 05/20/21 22:11 05/21/21 04:15 Ofirmev IV 05/23/21 22:10 Infused Q8H PRN Infusion Pain Piperacillin Sod/Tazobactam 115 mls @ 28.75 mls/hr 05/21/21 04:00 05/21/21 07:54 Sod 3.375 gm/ Dextrose IV 05/31/21 03:59 Infused Q8H MARY Infusion Protocol Ondansetron HCl 4 mg 05/20/21 22:10 05/21/21 04:36 Ondansetron Inj 2 Mg/Ml 2 Ml Vial IV 06/19/21 22:09 4 mg Q6H PRN Administration Nausea And Vomiting NPO Date Last Intake of Fluids: 05/20/21 Time Last Intake of Fluids: 23:59 Date Last Intake of Solids: 05/20/21 Time Last Intake of Solids: 23:59 Past Medical History Medical History Borderline hyperlipidemia Kidney stones Past Surgical History Surgical History History of lithotripsy Social History Smoking Status: Never smoker Hx Alcohol Use: Yes alcohol intake frequency: holidays/special occasions only Hx Substance Use: No Physical Exam Vital Signs Last Vital Signs Temp 98.1 F 05/21/21 07:30 Pulse 50 L 05/21/21 07:30 Resp 18 05/21/21 07:30 BP 105/64 05/21/21 07:30 Pulse Ox 96 05/21/21 07:30 Testing Laboratory Results 05/21/21 06:28 05/21/21 06:28 PT 10.4 Seconds (9.0-12.0) 05/20/21 17:40 INR 1.0 (0.9-1.1) 05/20/21 17:40 APTT 27.0 Seconds (21.0-31.0) 05/20/21 17:40 Urine Color Yellow 05/20/21 17:40 Urine Appearance Cloudy (Clear) A 05/20/21 17:40 Urine pH 5.0 (4.5-7.5) 05/20/21 17:40 Ur Specific [place] 1.017 (1.000-1.030) 05/20/21 17:40 Urine Protein Negative (Negative) 05/20/21 17:40 Urine Glucose (UA) Negative (Negative) 05/20/21 17:40 Urine Ketones Negative (Negative) 05/20/21 17:40 Urine Nitrite Negative (Negative) 05/20/21 17:40 Ur Leukocyte Esterase Negative (Negative) 05/20/21 17:40 Urine WBC (Auto) 1-5 /hpf (0-5) 05/20/21 17:40 Urine RBC (Auto) 0-4 /hpf (0-4) 05/20/21 17:40 U Hyaline Cast (Auto) 0 /lpf (0-5) 05/20/21 17:40 U Epithel Cells (Auto) >30 /lpf (0-5) H 05/20/21 17:40 Urine Bacteria (Auto) 1+ (Negative) H 05/20/21 17:40 Electrocardiogram Date: 05/20/21 Findings: + NSR @
[2021-05-21] MEDS ORDERED: ATROPINE SULFATE 0.1 MG/ML 10ML SYR IV PRN (11:54)
[2021-05-21] MEDS ORDERED: PROMETHAZINE HCL 6.25 MG in SODIUM CHLORIDE 0.9% 50 ML IV PRN (11:54)
[2021-05-21] MEDS ORDERED: ONDANSETRON INJ 2 MG/ML 2 ML VIAL IV PRN (11:54)
[2021-05-21] MEDS ORDERED: ePHEDrine sulfate 50 MG/ML AMP IV PRN (11:54)
[2021-05-21] MEDS ORDERED: fentaNYL citrate 100 MCG/2 ML VIAL ONE (11:59)
[2021-05-21] MEDS ORDERED: MIDAZOLAM HCL 1 MG/ML 2ML VIAL ONE (11:59)
[2021-05-21] MEDS ORDERED: EPINEPHrine INJ 1 MG/ML AMP ONE (12:08)
[2021-05-21] MEDS ORDERED: LIDOCAINE 1% LOCAL 20 ML VIAL ONE (12:08)
[2021-05-21] MEDS ORDERED: NEOSTIGMINE METHYLSULFATE 1 MG/ML 10ML VIAL ONE (12:57)
[2021-05-21] MEDS ORDERED: LIDOCAINE 2% 2 ML VIAL/AMP(20MG/ML) INFIL ONE (12:57)
[2021-05-21] MEDS ORDERED: LARYING-O-JET KIT (LTA) ONE (12:57)
[2021-05-21] MEDS ORDERED: ePHEDrine sulfate 50 MG/ML AMP ONE (12:57)
[2021-05-21] MEDS ORDERED: ONDANSETRON INJ 2 MG/ML 2 ML VIAL ONE (12:57)
[2021-05-21] MEDS ORDERED: GLYCOPYRROLATE 0.2 MG/ML VIAL ONE ×2 (12:57→13:13)
[2021-05-21] MEDS ORDERED: DEXAMETHASONE SOD INJ 4 MG/ML VIAL ONE (12:57)
[2021-05-21] MEDS ORDERED: ROCURONIUM BROMIDE 10 MG/ML 5 ML VIAL IV ONE (12:57)
[2021-05-21] MEDS ORDERED: PROPOFOL IV EMULSION 10 MG/ML 20 ML VIAL IV ONE (12:57)
[2021-05-21] MEDS ORDERED: PIPERACILLIN/TAZOBACTAM 3.375 GM in DEXTROSE 5% 100 ML IV ONE (12:59)
[2021-05-21] MEDS ORDERED: OPTIRAY 300 IV ONE (13:04)
--- NOTE | 2021-05-21 13:08 | Post Operative Brief Note ---
PG Immediate Post Op with CF Date of Surgery May 21, 2021 Pre & Post Diagnosis Operation Date: 05/21/21 08:20 Pre-Op Diagnosis: Cholelithiasis Post-Op Diagnosis: Cholelithiasis I identified the patient and participated in the time-out.: Yes Procedure Operation Date: 05/21/21 08:20 Actual Procedures p Laparoscopic Cholecystectomy Possible Open Possible Cholangiogram(Not Applicable) - Narciso mAaro MD, FACS Surgeon Narciso Amaro MD, FACS Sql Database Administrator ko toscano Estimated Blood Loss 5 Findings Consistent with Post-Op Diagnosis Specimens Specimen Description: A. Gallbladder
--- NOTE | 2021-05-21 13:24 | Operative Report ---
Post Operative Report Pre & Post Diagnosis Operation Date: 05/21/21 08:20 Pre-Op Diagnosis: Cholelithiasis Post-Op Diagnosis: Cholelithiasis I identified the patient and participated in the time-out.: Yes Procedure Operation Date: 05/21/21 08:20 Actual Procedures p Laparoscopic Cholecystectomy and attempted Cholangiogram(Not Applicable) - Narciso Amaro MD, FACS The patient was brought into the operating theater supine position general endotracheal anesthesia abdomen prepped byline solution properly draped a timeout was had patient was identified small incision was made in umbilical crater just above and below the puncture site from previous jaw replacement enough to place a Veress needle followed by CO2 followed by 5 mm trocar followed by the camera no injury identified on direct visualization place a 5 mm epigastric port site with preemptive local analgesic and 2 subcostal port similar size with preemptive local analgesic gallbladder could be seen. Wall was slightly edematous we placed it under traction and easily dissected down towards the neck of the gallbladder where we identified the cystic duct the artery was strictly adherent to it we created a plane between the 2 and were able to doubly clipped the cystic artery at the takeoff the cystic duct was clamped at its takeoff a small opening cystic duct was made in the attempt to place the Cholangiocath but this was unsuccessful so the duct was very small therefore we were not able to place a #4 urethral catheter in the cystic duct but there was no evidence of any obstruction given the size. The cystic duct was doubly clipped and divided the gallbladder once divided the artery was removed in antegrade fashion leaving as much posterior peritoneum was possible which the day edema made it easier to dissect out once the gallbladder was freed the most from the liver bed we checked the gallbladder fossa checked hemostasis appear satisfactory the gallbladder was freed from the liver and take it out through an Endopouch through the epigastric port subhepatic suprahepatic area was then again checked hemostasis appear satisfactory individual trochars removed after we put the camera right upper quadrant port site to visualize the umbilical entry with no adhesions were identified individual trocar removed on direct visualization and last the umbilical trocar 4-0 Monocryl for skin edges Steri-Strips applied procedure was tolerated well by the patient estimate blood loss 5 cc Addendum Ernestine Pagan physician assistant store manager trainee was present throughout the procedure and helped the retraction exposure and wound closure Addendum talked with her Glenn at [phone] he considered picking her up and taken her home tonight she lives 2-1/2 hours away I felt it may be a better idea to keep her here overnight Surgeon Narciso Amaro MD, FACS Plant Superintendent ko toscano Estimated Blood Loss 5 Findings Consistent with Post-Op Diagnosis Acute cholecystitis cholelithiasis Specimens Gallbladder and contents Complications None Indications Acute gallbladder attack Description of Procedure merda I attest to the content of the Intraoperative Record and any orders documented therein. Any exceptions are noted below.
[2021-05-21] MEDS ORDERED: PROMETHAZINE HCL INJ 25 MG/ML 1 ML VIAL ONE (13:46)
[2021-05-21] MEDS ORDERED: SODIUM CHLORIDE 0.9% 50 ML BAG ONE (13:46)
[2021-05-21] MEDS: fentaNYL citrate 100 MCG/2 ML VIAL IV PRN ×4 (13:50→14:05)
--- NOTE | 2021-05-21 14:38 | Anesthesiology Progress Note ---
Date of Service May 21, 2021 Anesthesia Post Procedure Vital Signs Vital Signs: Temp Pulse Pulse Pulse Pulse Resp BP 05/21/21 14:30 99.0 F 61 17 05/21/21 14:20 53 L 19 05/21/21 14:10 55 L 17 05/21/21 14:00 63 15 05/21/21 13:50 67 21 05/21/21 13:40 69 16 05/21/21 13:34 97.3 F L 81 13 05/21/21 10:54 98.2 F 54 L 16 05/21/21 07:30 98.1 F 50 L 18 05/20/21 23:32 97.7 F 51 L 15 05/20/21 23:15 54 L 18 05/20/21 22:32 57 L 20 05/20/21 21:59 59 L 20 05/20/21 21:11 48 L 20 05/20/21 20:32 59 L 20 05/20/21 19:52 76 20 05/20/21 19:23 63 20 05/20/21 19:20 05/20/21 18:00 56 L 17 154/66 H 05/20/21 17:53 55 L 17 05/20/21 17:14 96.8 F L 60 16 145/75 H BP Pulse Ox 05/21/21 14:30 141/67 H 98 05/21/21 14:20 126/66 99 05/21/21 14:10 135/71 98 05/21/21 14:00 128/60 89 L 05/21/21 13:50 135/68 100 05/21/21 13:40 136/69 100 05/21/21 13:34 141/43 H 99 05/21/21 10:54 128/66 95 05/21/21 07:30 105/64 96 05/20/21 23:32 127/72 97 05/20/21 23:15 114/60 97 05/20/21 22:32 127/64 98 05/20/21 21:59 114/67 96 05/20/21 21:11 122/67 98 05/20/21 20:32 114/74 96 05/20/21 19:52 128/73 98 05/20/21 19:23 151/82 H 98 05/20/21 19:20 98 05/20/21 18:00 98 05/20/21 17:53 97 05/20/21 17:14 99 Pain Intensity Bilateral Abdomen: Pain Intensity: 3 Abdomen: Pain Intensity: 4 Back: Pain Intensity: 5 Transfer of Care Handoff Completed per policy Notes Mental Status: alert / awake / arousable and participated in evaluation Patient Amnestic to Procedure: Yes Nausea / Vomiting: adequately controlled Pain: adequately controlled Airway Patency, RR, SpO2: stable & adequate BP & HR: stable & adequate Hydration State: stable & adequate Anesthetic Complications: no major complications apparent and Pt Satisfied with anesthetic care
[2021-05-21] MEDS ORDERED: oxyCODONE HCL IR 5 MG TAB (IMMEDIATE RELEASE) PO PRN (14:45)
[2021-05-21] MEDS ORDERED: MoRPHine SULFATE 2 MG/ML CARP IV PRN (14:45)
[2021-05-21] MEDS ORDERED: MoRPHine SULFATE 4 MG/ML 1 ML CARP\\VIAL IV PRN (14:45)
[2021-05-21] MEDS: oxyCODONE HCL IR 5 MG TAB (IMMEDIATE RELEASE) PO PRN ×2 (16:29→21:11)
[2021-05-22] MEDS: oxyCODONE HCL IR 5 MG TAB (IMMEDIATE RELEASE) PO PRN ×3 (02:14→12:16)
[2021-05-22] MEDS: LACTATED RINGER'S 1,000 ML IV SCH (02:14)
[2021-05-22] MEDS: PIPERACILLIN/TAZOBACTAM 3.375 GM in DEXTROSE 5% 100 ML IV SCH (04:01)
[2021-05-22 06:45] LABS: Basophils # (auto) 0.01 K/uL (0-0.2); Basophils % (auto) 0.1 %; Eosinophils # (auto) 0.02 K/uL (0-0.5); Eosinophils % (auto) 0.1 %; Hematocrit (blood only) 36.7 % (37-47); Hemoglobin 12.3 g/dL (12.0-16.0); Immature Granulocytes # (auto) 0.03 K/uL (0.00-0.02); Immature Granulocytes % (auto) 0.2 %; Lymphocytes # (auto) 1.41 K/uL (1.2-3.4); Lymphocytes % (auto) 10.5 %; Mean Corpuscular Hemoglobin 30.5 pg (25-34); Mean Corpuscular Hgb Conc 33.5 g/dL (32-36); Mean Corpuscular Volume 91.1 fL (80-100); Mean Platelet Volume 9.4 fL (7.4-10.4); Monocytes # (auto) 1.32 K/uL (0.11-0.59); Monocytes % (auto) 9.8 %; Neutrophils # (auto) 10.64 K/uL (1.4-6.5); Neutrophils % (auto) 79.3 %; Platelet Count 293 K/uL (130-400); RDW Coefficient of Variation 14.5 % (11.5-14.5); Red Blood Count 4.03 M/uL (4.2-5.4); White Blood Count 13.43 K/uL (4.8-10.8)
--- NOTE | 2021-05-22 07:07 | Operative Report ---
Post Operative Report Pre & Post Diagnosis Operation Date: 05/21/21 08:20 Pre-Op Diagnosis: Cholelithiasis Post-Op Diagnosis: Cholelithiasis I identified the patient and participated in the time-out.: Yes Procedure Operation Date: 05/21/21 08:20 Actual Procedures p Laparoscopic Cholecystectomy and attempted Cholangiogram(Not Applicable) - Narciso Amaro MD, FACS Surgeon Narciso Amaro MD, FACS Pen Rider ko toscano Estimated Blood Loss 5 Findings Consistent with Post-Op Diagnosis ccc Specimens gallbladder Drains 0 Indications pain ruq Description of Procedure merda I attest to the content of the Intraoperative Record and any orders documented therein. Any exceptions are noted below. Supervising Physician Co-Signing Physician Notes As per Davian Downey physician assistant womens volleyball coach This morning the patient is resting comfortable does not want to have the pain she had yesterday the first time she is ever had this The abdomen is soft minimal right upper quadrant guarding We will proceed with laparoscopic cholecystectomy intraoperative cholangiogram she is on the add-on schedule today do not know the time we will have her sign her permit in the preop area
--- NOTE | 2021-05-22 07:10 | Surgery Progress Note ---
Date of Service May 22, 2021 Assessment & Plan (1) Cholelithiasis: Plan: POD#1 status post laparoscopic cholecystectomy attempted cholangiogram Path findings discussed with the patient and the operative procedure We will reevaluate her later this morning likely she will be able to be discharged but she states that she will drive or be driven home which is about 2 and half hours away and with follow-up there would rather than come back here for postoperative care We will send with her appropriate records when all available I did ask her to get out of the car after an hour do not drive for 2 hours constantly Postoperative instructions were given regarding activity diet and meds Due to the patient's clinical presentation and imaging we admit her to the hospital proceeding as follows: We will make her n.p.o. Analgesia will be provided Antiemetics will be provided We will hydrate her with IV fluids We will administer antibiotics. We will utilize Zosyn. We will repeat labs in the morning Due to the findings on imaging as well as her clinical presentation I feel the patient would benefit from a cholecystectomy. I scheduled her for a laparoscopic, possible open cholecystectomy with Dr. Amaro for tomorrow. I discussed the risks, benefits, and expected postoperative course with the patient. She wishes to proceed. We will use SCDs for DVT prevention, no chemical means due to planned surgery We will level 1 full code Admission and Anticipated Discharge Date Admission Date: May 20, 2021 Subjective Overall is doing very well first day after surgery She was able to eat last night without any issue no abdominal discomfort Physical Exam Physical Exam: Alert coherent resting comfortable in bed The abdomen is benign slight tinge on the Steri-Strips at the trocar sites Results & Data ([facility]) Vital Signs (Past 12 Hours) Vital Signs Temp Pulse Resp BP Pulse Ox 05/22/21 04:06 36.8 C 55 L 16 120/74 95 05/21/21 23:24 37.0 C 70 18 106/61 92 PG Care Time/CCT Total # of Minutes Spent Total Time Spent with Patient: Total time spent is greater than 50% in coordination of care (as documented) at patient's floor/unit and/or counseling patient: Coding Level of Care Code None Diagnoses Cholelithiasis K80.20 Biliary obstruction: without biliary obstruction Cholecystitis presence: without cholecystitis Cholelithiasis location: gallbladder (1) Cholelithiasis Biliary obstruction: without biliary obstruction Cholecystitis presence: without cholecystitis Cholelithiasis location: gallbladder Qualified Code(s): K80.20 - Calculus of gallbladder without cholecystitis without obstruction
[2021-05-22 07:16] LABS: Albumin Level 3.4 gm/dl (3.4-5.0); BUN Creatinine Ratio 10.7 (10-20); Bilirubin,Total 0.3 mg/dl (0.2-1.0); Calcium 8.6 mg/dl (8.5-10.1); Creatinine Clr Calc Pharmacy 92.9 ml/min; Est GFR (African American) 105.5 ml/min; Potassium 3.9 mmol/L (3.5-5.1); Total Protein 5.3 gm/dl (6.0-8.3)
--- NOTE | 2021-05-24 21:10 | Discharge Summary ---
Date of Service May 24, 2021 Admission HPI Per Admitting Provider Is a 55-year-old female who is visiting the [place] area as she is dropping her daughter off for college. Patient says that she was in her usual state of health feeling fine when earlier today she developed some epigastric pain and to a lesser degree pain in the right upper quadrant. She said that the pain was unrelated to anything she ate. She said that she has never had such symptoms like this before. She said that the pain did radiate to her back. She did not identify any provocative factors. She noted that the pain was alleviated with medicine that was given to her in the emergency department. She does report that the pain radiates to her back. She has never had any prior abdominal surgeries. With her pain she did have nausea without vomiting. She denies any fevers, shakes, chills. Today in the emergency department the patient had labs and imaging which I independent reviewed. A CBC revealed white blood cell count, hemoglobin, hematocrit, and platelet count were all within normal range. Chemistry profile showed sodium, potassium, BUN, and creatinine were all within normal range. There is no elevation of her bilirubin, transaminases, alkaline phosphatase, or lipase. test was noted be negative. Urinalysis was not indicative of infection. A Covid test was noted to be negative. Patient had a CT scan of her abdomen and pelvis which showed the patient had distended gallbladder with mild gallbladder wall thickening and trace pericholecystic fluid. This was followed with a gallbladder ultrasound that showed showed patient had multiple gallstones. Her gallbladder wall was slightly thickened with 3 mm of thickness. There is no pericholecystic fluid noted. Patient also had a CT scan of her chest which showed no evidence of pneumonia, pneumothorax, or aortic dissection. There is no evidence of PE on the study. Did question patient on her activities of daily living the patient says that she lifts weights several times per week and she also uses an elliptical machine nearly every day. She says with these activities she does not get any chest pain or shortness of breath. She is a non-smoker At the time of interview she is resting comfortably bed in no distress Principal Diagnosis cholelithiasis Discharge Exam awake/alert Gastrointestinal (Abdomen) Inspection/Auscultation: + abdominal surgical incision (c/d/i); abdomen not distended Percussion/Palpation: + abdomen tender (expected юлия incisional discomfort) and abdomen soft Discharge Data Allergies Allergy/AdvReac Type Severity Reaction Status Date / Time No Known Allergies Allergy Verified 05/20/21 17:47 Consultations 05/20/21 20:14 ED Decision to Admit Stat Procedures Performed Operation Date: 05/21/21 08:20 Actual Procedures p Laparoscopic Cholecystectomy and attempted Cholangiogram(Not Applicable) - Narciso Amaro MD, FACS Ordered Studies 05/20/21 17:36 CT abd pelvis IV con only Stat CT angio chest w con Stat 05/20/21 20:18 US gallbladder Urgent Hospital Course (1) Cholelithiasis: This is a 55yF who presented to the [facility] ED on 05/20/21 with epigastric abdominal pain. Workup in the ED showed a WBC of 7.[address] a/p and RUQ revealed findings of cholelithiasis, along with a distended gallbladder, with suspicion of cholecystitis. The patient was tender to palpation in the epigastric/RUQ. Patient made NPO with IVF and booked for the OR. On 3 the patient went to the OR with Dr. Amaro for a laparoscopic cholecystectomy. The patient tolerated the procedure well, see operative report for full details. Post operatively the patient's diet was advanced as tolerated, pain managed on prn meds, and incisions clean/dry/intact. On POD#1 the patient was deemed stable for discharge to home. She was instructed to follow up with a physician near her home given distance from [facility] and was welcome to call our office at any time with any questions/concerns. Total Time Total Time Spent Total Time Spent (In Minutes): 15 Discharge Plan Discharge Items Patient Disposition: Home - Self-Care Reason For Visit: MARISOL Discharge Diagnosis: laparoscopic cholecystectomy Activity: Per Instructions section Lifting: No more than 10 pounds Bathing Comment: may shower; no soaking in tubs/pools Exercise/Sports: Wait until after follow-up appointment Driving/Machine Use: no driving while taking narcotics for pain Non-emergency contact: Surgeon Call non-emergency contact if: you have any medication questions, your symptoms worsen, your pain is not controlled, your pain is concerning for you, you have a fever, your temperature is above 101.5, your wound has increased redness, your wound has increased drainage and your wound pain has increased Follow-up/Referrals: Narciso mAaro MD, FACS [Surgeon] - (You may call the office at any time with any questions/concerns. You may follow up with your PCP or surgeon closer to home if you prefer. Otherwise you may call our office within 1 week to let us know how you are doing) PCP,NO [Primary Care Provider] - Diet: Regular Addtl Attending Provider Instructions: You have small white bandages over your incisions called steri-strips. You may shower with these on. They will tend to fall off on their own within 7-10 days. Pending Studies at Discharge: Yes Studies:: surgical pathology Stand-Alone Forms: [facility] [employer], Opioid Pain Management, Smoking Cessation Medications and DC Order Prescriptions: New oxycodone-acetaminophen [Percocet] 5-325 mg tablet 1 - 2 tab PO .q4-6h PRN (Reason: pain, for initial therapy, max 6 tabs per day) Qty: 15 RF: 0 Continued alprazolam [Xanax] 0.25 mg Tablet 0.125 - 0.25 mg PO DIRECTED PRN (Reason: Anxiety) RF: 0 cholecalciferol (vitamin D3) [Vitamin D3] 25 mcg (1,000 unit) Capsule 0 mcg PO WK RF: 0 Discharge Orders: Discharge Order (Routine); Ordered 05/22/21 Ordered By: Ernestine Rogers/Other Patient Handouts: Having Laparoscopic Cholecystectomy Admission Data Admit Date/Time: 05/20/21 22:10 Attending Provider: Narciso Amaro Admit Provider: Narciso Amaro Primary Care Provider: PCP,NO Other Providers: Narciso Amaro Other Interventions: Discharge Summary Assessment (RN) Last Done: 05/22/21 10:06 Coding Level of Care Code D/C DAY MANAGEMENT <30 MINS Diagnoses Cholelithiasis K80.20 Biliary obstruction: without biliary obstruction Cholecystitis presence: without cholecystitis Cholelithiasis location: gallbladder
== END 2021-05-22 13:51 | disposition home or self-care (01) ==
LOC: ED 17:14 → 3W 17:14